=== PATIENT | female | born 1940 | race Asian ===

== ENCOUNTER 2023-06-11 23:06 | Emergency (ER) | payer SELFPAY ==
[~2023-06-11] VITALS: Ht 142.2 cm; Wt 40.8 kg
[~2023-06-11 23:06] MED LIST: AMIODARONE HCL 150 MG/3 ML VIAL IV ONE; ATROPINE SULFATE 1 MG/10 ML DISP.SYRIN ONE; CALCIUM CHLORIDE 1 GM/10 ML DISP.SYRIN IVP ONE; EPINEPHRINE 1:10,000 1 MG/10 ML DISP.SYRIN ONE; SODIUM BICARBONATE 8.4% 50 MEQ/50 ML DISP.SYRIN IV ONE
[2023-06-11] MEDS ORDERED: AZITHROMYCIN 250 MG TABLET PO ONE (23:45)
[2023-06-11] MEDS ORDERED: DEXAMETHASONE SOD PHOSPHATE 4 MG INJ IV ONE (23:45)
[2023-06-11] MEDS ORDERED: CEFTRIAXONE 1 G in IV DEXTROSE 5% 50 ML IV ONE (23:45)
[2023-06-12] MEDS ORDERED: AZITHROMYCIN 250 MG TABLET ONE (00:05)
[2023-06-12] MEDS ORDERED: DEXAMETHASONE SOD PHOSPHATE 4 MG INJ ONE (00:05)
[2023-06-12] MEDS ORDERED: CEFTRIAXONE /D5W 50ML IVPB **ER PYXIS IV ONE (00:05)
[2023-06-12] MEDS ORDERED: [UNRECOGNIZED DRUG - OTHER] (00:07)
[2023-06-12] MEDS ORDERED: CARV25TA2 PO (00:07)
[2023-06-12] MEDS ORDERED: gliclazide PO (00:07)
[2023-06-12] MEDS ORDERED: trimetazidine PO (00:07)
[2023-06-12 00:12] LABS: BASOPHILS % (AUTO) 0.3 % (0.0-2.0); HEMATOCRIT 30.1 % (31.2-41.9); HEMOGLOBIN 9.8 g/dL (10.9-14.3); LYMPHOCYTES # (AUTO) 1.9 K/uL (0.8-4.8); LYMPHOCYTES % (AUTO) 12.1 % (20.5-51.5); MEAN CORPUSCULAR HEMOGLOBIN 28.5 uug (24.7-32.8); MEAN CORPUSCULAR HGB CONC 32 g/dL (32.3-35.6); MONOCYTES # (AUTO) 0.9 K/uL (0.1-1.30); MONOCYTES % (AUTO) 5.9 % (0.0-11.0); NEUTROPHILS # (AUTO) 12.6 K/uL (1.8-8.9); NEUTROPHILS % (AUTO) 81.7 % (38.5-71.5); PLATELET COUNT (AUTO) 246 K/uL (179-408); RED BLOOD CELL COUNT(AUTO) 3.42 MIL/uL (3.63-4.92); RED CELL DISTRIBUTION WIDTH 13.1 % (12.3-17.7); WHITE BLOOD COUNT (AUTO) 15.4 K/uL (3.8-11.8)
[2023-06-12 00:15] LABS: DIFFERENTIAL COMMENT 1
[2023-06-12 00:35] LABS: ALANINE AMINOTRANSFERASE 61 U/L (14-59); ALKALINE PHOSPHATASE 110 U/L (50-136); ASPARTATE AMINOTRANSFERASE 77 U/L (15-37); BILIRUBIN,DIRECT 0.3 mg/dL (0.0-0.2); BILIRUBIN,TOTAL 0.7 mg/dL (0.2-1.0); CALCIUM 8.5 mg/dL (8.5-10.1); CARBON DIOXIDE 24 mmol/L (21-32); CHLORIDE 91 mmol/L (98-107); CREATININE 2.4 mg/dL (0.6-1.3); NT-PRO BNP 11267 pg/mL (0-125); POTASSIUM 6.1 mmol/L (3.5-5.1); SODIUM SERUM 122 mmol/L (136-145); TOTAL PROTEIN, SERUM 7.5 g/dL (6.4-8.2); UREA NITROGEN, BLOOD 53 mg/dL (7-18)
[2023-06-12 00:36] LABS: ABG BASE EXCESS -5.6 mmol/L; ABG HCO3 20.5 mmol/L; ABG PCO2 42.2 mmHg (35.0-45.0); ABG PH 7.304 (7.350-7.450); ABG PO2 60.8 mmHg (75.0-100.0); ABG SITE LEFT BRACHIAL; ABG TOTAL HEMOGLOBIN 11.1 G/dL (12.0-16.0); COHb 0.4 % (0.5-1.5); MetHb 0.3 % (0.0-1.5); VENT MODE ROOM AIR
[2023-06-12 00:37] LABS: GLUCOSE 647 mg/dL (74-106)
[2023-06-12 01:02] LABS: LACTIC ACID 2.9 mmol/L (0.4-2.0)
[2023-06-12] MEDS ORDERED: INSULIN REGULAR, HUMAN 100 UNIT in IV NORMAL SALINE 100 ML IV STA ×2 (01:06)
[2023-06-12] MEDS ORDERED: CALCIUM CHLORIDE 1 GM/10 ML DISP.SYRIN IVP ONE ×2 (01:09→01:15)
[2023-06-12] MEDS ORDERED: SODIUM POLYSTYRENE SULFONATE 15 G/60 ML LIQUID UDC ONE (01:10)
[2023-06-12] MEDS ORDERED: SODIUM BICARBONATE 8.4% 50 MEQ/50 ML DISP.SYRIN IV ONE ×4 (01:10→02:04)
[2023-06-12] MEDS ORDERED: INSULIN REGULAR, HUMAN 300 UNIT/3 ML VIAL ONE (01:12)
[2023-06-12] MEDS ORDERED: IV NS 1000 ML 1,000 ML IV PRN (01:15)
[2023-06-12] MEDS ORDERED: ALBUTEROL SULFATE 2.5 MG/3 ML NEBU NEB ONE (01:15)
[2023-06-12] MEDS ORDERED: INSULIN REGULAR, HUMAN 300 UNIT/3 ML VIAL IV ONE (01:15)
[2023-06-12] MEDS ORDERED: SODIUM POLYSTYRENE SULFONATE 15 G/60 ML LIQUID UDC PO ONE (01:15)
[2023-06-12] MEDS ORDERED: EPINEPHRINE 1:10,000 1 MG/10 ML DISP.SYRIN ONE (01:56)
[2023-06-12] MEDS ORDERED: NOREPINEPHRINE BITARTRATE 4 MG/4 ML VIAL IV ONE (02:20)
[2023-06-12 05:58] VITALS: BP 0/0; O2SAT 0
== END 2023-06-12 06:04 ==
LOC: ER 23:13
DX: J96.00 Acute respiratory failure, unspecified whether with hypoxia or hypercapnia (principal); E87.5 Hyperkalemia; E87.1 Hypo-osmolality and hyponatremia; E11.00 Type 2 diabetes mellitus with hyperosmolarity without nonketotic hyperglycemic-hyperosmolar coma (NKHHC); I50.9 Heart failure, unspecified; N18.9 Chronic kidney disease, unspecified; Z79.899 Other long term (current) drug therapy; Z20.822 Contact with and (suspected) exposure to COVID-19
CPT/HCPCS: 36556; 87804 ×2; 80076; 80048; 82009; 83880; 85025; 84145; 85730; 87040 ×2; 84484; 36415 ×2; 31500; 99291; 83605 ×2; 93005; 71045; 36600 ×2; 87426; 92950; 82803; 96361; 96365; 96375; J0282; J0461; J3490 ×6; J0171 ×2; J0696; J1100; J1815; 94002; A4606; A4663; Q0144